=== PATIENT | female | born 1975 | race Caucasian/White ===

== ENCOUNTER 2017-09-16 09:11 | Day surgery (SDC) | payer OTHER ==
[~2017-09-16] VITALS: Ht 165.1 cm; Wt 135.2 kg
[~2017-09-16 09:11] MED LIST: BENTYL20 MG PO; CARAFATE100 MG/ML PO; CELEXA40 MG PO; COMBIVENT RESPIM4 GM IH; ERGOCALCIF50000 UNIT PO; ERYTHROMYCIN IV; KLONOPIN1 MG PO; LOPRESSOR HC1 TABLET PO; MELATONIN10 M2 PO; PROTONIX40 MG PO; REQUIP2 MG PO; ROXICODONE15 MG PO; SYNTHROID25 MCG PO; ZICAM PO; ZOFRAN4 MG PO
[2017-09-16 09:53] VITALS: BP 135/86
[2017-09-16] MEDS ORDERED: NORCO 5/3251 TABLET PO (14:30)
[2017-09-16 14:52] VITALS: BP 134/68
[2017-09-16 15:52] VITALS: BP 117/80
[2017-09-16 16:55] VITALS: BP 136/88
== END 2017-09-16 17:00 | disposition home or self-care (01) ==
LOC: SDC 09:11
PROVIDERS: Surgery
PROC: 0WUF4JZ Supplement Abdominal Wall with Synthetic Substitute, Percutaneous Endoscopic Approach (ICD-10-PCS; principal; 2017-09-16)
DX: K43.6 Other and unspecified ventral hernia with obstruction, without gangrene (principal); Z98.84 Bariatric surgery status; I10 Essential (primary) hypertension; D64.9 Anemia, unspecified; F32.9 Major depressive disorder, single episode, unspecified; F41.1 Generalized anxiety disorder; G43.909 Migraine, unspecified, not intractable, without status migrainosus; R56.9 Unspecified convulsions; E03.9 Hypothyroidism, unspecified; E66.01 Morbid (severe) obesity due to excess calories; Z68.41 Body mass index [BMI] 40.0-44.9, adult; M79.7 Fibromyalgia; K27.9 Peptic ulcer, site unspecified, unspecified as acute or chronic, without hemorrhage or perforation; Z83.3 Family history of diabetes mellitus; Z82.49 Family history of ischemic heart disease and other diseases of the circulatory system; Z88.8 Allergy status to other drugs, medicaments and biological substances
CPT/HCPCS: 81025; 93005; C1781; J0330; J1100; J1170; J2250; J2405; J2710; J3475; J7643; Q0175; S0020